=== PATIENT | male | born 1975 | race Caucasian/White ===

== ENCOUNTER 2019-05-13 19:33 | Outpatient (CLI) | payer MEDICAID | END 2019-05-13 19:34 | disposition critical access hospital (66) | LOC: EMS 19:33 | PROVIDERS: ATTEND Surgery | DX: R07.9 Chest pain, unspecified (principal); R06.00 Dyspnea, unspecified; V43.61XA Car passenger injured in collision with sport utility vehicle in traffic accident, initial encounter; Y92.413 State road as the place of occurrence of the external cause | CPT/HCPCS: A0425; A0427 ==

== ENCOUNTER 2019-05-13 19:55 | Emergency (ER) | payer MEDICAID, OTHER ==
[2019-05-13] MEDS ORDERED: SODIUM CHLORIDE 0.9% 1,000 ML IV ONE (20:04)
[2019-05-13] MEDS ORDERED: HYDROmorphone 1 MG/ML CARPUJECT IVP STA ×2 (20:04→20:44)
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
[2019-05-13 20:13] LABS: BASOPHILS % (AUTO) 0.6 %; EOSINOPHILS # (AUTO) 0.4 10^3/uL (0.0-0.7); EOSINOPHILS % (AUTO) 5.4 %; LYMPHOCYTES # (AUTO) 1.7 10^3/uL (1.5-3.5); LYMPHOCYTES % (AUTO) 26.3 %; MEAN CORPUSCULAR HEMOGLOBIN 30.4 pg (27.0-31.0); MEAN CORPUSCULAR HGB CONC 31.8 g/dL (32.0-36.0); MEAN CORPUSCULAR VOLUME 95.7 fL (80.0-94.0); MEAN PLATELET VOLUME 10.1 fL (7.4-11.4); MONOCYTES # (AUTO) 0.5 10^3/uL (0.0-1.0); MONOCYTES % (AUTO) 7.7 %; NEUTROPHILS # (AUTO) 3.9 10^3/uL (1.5-6.6); NEUTROPHILS % (AUTO) 59.2 %; PLT - PLATELET COUNT 255 10^3/uL (130-450); RED CELL DISTRIBUTION WIDTH 12.7 % (12.0-15.0); WHITE BLOOD COUNT 6.5 x10^3/uL (4.8-10.8)
[2019-05-13] MEDS ORDERED: IOVERSOL 320 100 ML VIAL IVP ONE ×2 (20:20→20:35)
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
[2019-05-13 20:27] LABS: ALBUMIN 4.2 g/dL (3.2-5.5); ALBUMIN/GLOBULIN RATIO 1.3 (1.0-2.2); ALKALINE PHOSPHATASE 71 IU/L (42-121); ALT ALANINE AMINOTRANSFERASE 33 IU/L (10-60); AST ASPARTATE AMINOTRANSFERASE 25 IU/L (10-42); BILIRUBIN,TOTAL 0.4 mg/dL (0.2-1.0); BUN - BLOOD UREA NITROGEN 24 mg/dL (6-20); CALCIUM 9.5 mg/dL (8.5-10.3); CARBON DIOXIDE - CO2 30 mmol/L (21-32); CHLORIDE 104 mmol/L (101-111); CREATININE 1.2 mg/dL (0.6-1.2); GFR - MDRD 67 (>89); GLUCOSE 101 mg/dL (70-100); LIPASE 43 U/L (22-51); SODIUM 142 mmol/L (135-145); TOTAL PROTEIN 7.4 g/dL (6.7-8.2)
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
[2019-05-13 20:30] LABS: INR 1.1 (0.8-1.2); PT - PROTHROMBIN TIME 12.4 secs (9.9-12.6)
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
[2019-05-13] MEDS ORDERED: KETOROLAC 30 MG/ML VIAL IVP STA (22:47)
[2019-05-14] MEDS ORDERED: ONDANSETRON 4 MG/2 ML VIAL IVP STA (00:30)
[2019-05-14] MEDS ORDERED: HYDROmorphone 1 MG/ML CARPUJECT IVP STA (00:30)
[2019-05-14 00:34] LABS: MUDS CUTOFF CONCENTRATIONS CUTOFF CONC BELOW:
[2019-05-14 00:36] LABS: BILIRUBIN,URINE NEGATIVE (NEGATIVE); GLUCOSE, URINE (UA) NEGATIVE (NEGATIVE); KETONES,URINE (UA) NEGATIVE (NEGATIVE); LEUKOCYTE ESTERASE, URINE NEGATIVE (NEGATIVE); NITRITE,URINE NEGATIVE (NEGATIVE); OCCULT BLOOD,URINE SMALL (NEGATIVE); PROTEIN,URINE NEGATIVE (NEGATIVE); UROBILINOGEN,URINE 0.2 (NORMAL) E.U./dL (NORMAL)
[2019-05-14 00:37] LABS: CLARITY,URINE CLEAR (CLEAR)
[2019-05-14 00:50] LABS: AMPHETAMINE SCREEN,URINE POSITIVE (NEGATIVE); BENZODIAZEPINES SCREEN, URINE NEGATIVE (NEGATIVE); COCAINE SCREEN URINE NEGATIVE (NEGATIVE); METHADONE SCREEN, URINE NEGATIVE (NEGATIVE); METHAMPHETAMINES SCREEN, URINE POSITIVE (NEGATIVE); OPIATE SCREEN, URINE POSITIVE (NEGATIVE); OXYCODONE SCREEN, URINE NEGATIVE (NEGATIVE); PROPOXYPHENE SCREEN, URINE NEGATIVE (NEGATIVE); TRICYCLIC ANTIDEPRESSANT,URINE NEGATIVE (NEGATIVE)
[2019-05-14 00:54] VITALS: BP 130/102
[2019-05-14 00:56] LABS: BACTERIA,URINE Rare /HPF (None Seen); MUCUS,URINE Few Strands; SQUAMOUS EPITHELIAL CELL,UR NONE SEEN (<= Few)
== END 2019-05-14 01:00 | disposition short-term general hospital (02) ==
LOC: EDUNIT# → ED 19:55
DX: S22.22XA Fracture of body of sternum, initial encounter for closed fracture (principal); S62.511A Displaced fracture of proximal phalanx of right thumb, initial encounter for closed fracture; M25.561 Pain in right knee; V43.52XA Car driver injured in collision with other type car in traffic accident, initial encounter; W22.11XA Striking against or struck by driver side automobile airbag, initial encounter; Y92.411 Interstate highway as the place of occurrence of the external cause; N13.2 Hydronephrosis with renal and ureteral calculous obstruction; M50.30 Other cervical disc degeneration, unspecified cervical region; M51.37 Other intervertebral disc degeneration, lumbosacral region
CPT/HCPCS: 36415; 70450; 71045; 71260; 72125; 73130; 73564; 74177; 80053; 80306; 80320; 81001; 83690; 85025; 85610; 86850; 86900; 86901; 96374; 96375; 96376; 99285; J1170; Q9967; 81003; 87086

== ENCOUNTER 2019-08-22 02:39 | Emergency (ER) | payer MEDICAID, OTHER ==
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
[2019-08-22 05:01] VITALS: BP 144/90
== END 2019-08-22 05:01 | disposition home or self-care (01) ==
LOC: ED 02:39
DX: Z02.89 Encounter for other administrative examinations (principal); S62.221A Displaced Rolando's fracture, right hand, initial encounter for closed fracture; S00.33XA Contusion of nose, initial encounter; V89.2XXA Person injured in unspecified motor-vehicle accident, traffic, initial encounter
CPT/HCPCS: 99283

== ENCOUNTER 2021-07-19 08:00 | Outpatient (CLI) | payer MEDICAID, OTHER ==
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
--- NOTE | 2021-07-19 17:04 | XRAY Report ---
PROCEDURE: Hand 3 View RT INDICATIONS: DEFORMITY OF R FINGER TECHNIQUE: 3 views of the hand(s) acquired. COMPARISON: 08/22/2019 FINDINGS: Bones: Old healed first proximal phalangeal shaft fracture is seen with chronic-appearing deformity. Moderate first MCP and first interphalangeal joint osteoarthritic changes are seen. No acute fracture s or dislocations. No suspicious bony lesions. Soft tissues: No suspicious soft tissue calcifications. IMPRESSION: Old healed first proximal phalangeal shaft fracture and moderate right thumb osteoarthritis. No acute right hand fracture or dislocation. Reviewed by: Lyndon Vasquez MD on 07/19/2021 5:03 PM PST Approved by: Lyndon Vasquez MD on 07/19/2021 5:03 PM PST Station ID: [id number]
== END 2021-07-19 23:59 | disposition home or self-care (01) ==
LOC: DI.N 08:00
PROVIDERS: ATTEND Orthopaedic Surgery
DX: M20.091 Other deformity of right finger(s) (principal); S62.511S Displaced fracture of proximal phalanx of right thumb, sequela; M18.11 Unilateral primary osteoarthritis of first carpometacarpal joint, right hand

== ENCOUNTER 2021-09-07 08:00 | Outpatient (CLI) | payer MEDICAID | END 2021-09-07 23:59 | LOC: LAB 08:00 | PROVIDERS: ATTEND Family Medicine | DX: U07.1 COVID-19 (principal) ==

== ENCOUNTER 2022-11-09 19:19 | Outpatient (CLI) | payer MEDICAID ==
[2022-11-10 02:01] LABS: CHLAMYDIA TRACHOMATIS DNA NEGATIVE (NEGATIVE); NEISSERIA GONORRHOEAE DNA POSITIVE (NEGATIVE)
== END 2022-11-09 23:59 | disposition home or self-care (01) ==
LOC: LAB.N 19:19
PROVIDERS: ATTEND Family Medicine
DX: R30.0 Dysuria (principal); N39.0 Urinary tract infection, site not specified
CPT/HCPCS: 87086; 87491; 87591; 87661

== ENCOUNTER 2023-01-15 19:05 | Emergency (ER) | payer MEDICAID ==
[2023-01-15 19:18] VITALS: BP 154/96
--- NOTE | 2023-01-15 21:49 | ED Physician Documentation ---
PD HPI OPHTHO - Stated complaint Stated Complaint: SWOLLEN EYE - Chief complaint Chief Complaint: Heent - History obtained from History obtained from: Patient - Additional information Additional information: The patient comes to the emergency department chief complaint of left lower eyelid irritation and some weeping over the last few days. He states he had done a bunch of yard work and cleared out a lot of stinging lamberto and was wondering if maybe something got in his eye. However, he has not really had a foreign body sensation in the eye itself is seemed okay. He states he just keeps getting a little drainage from his eyelid. He denies using any contact lenses. He states his vision is slightly blurred in the eye but that is not a new problem. No other injuries or complaints. No rash. No allergies. PD PAST MEDICAL HISTORY - Past Medical History Cardiovascular: None Respiratory: None Neuro: None Endocrine/Autoimmune: None GI: Other : Kidney stones HEENT: None Psych: None Musculoskeletal: None Derm: None - Past Surgical History Past Surgical History: Yes General: Other - Present Medications Home Medications: Ambulatory Orders Medication Instructions Recorded Confirmed Gentamicin 0.3% Ophth Drops 1 drops OPTH BID #5 ml 01/15/23 [Garamycin] - Allergies Allergies/Adverse Reactions: Allergies Allergy/AdvReac Type Severity Reaction Status Date / Time No Known Drug Allergies Allergy Unverified 01/15/23 19:15 - Social History Does the pt smoke?: No Smoking Status: Never smoker Does the pt drink ETOH?: No Does the pt have substance abuse?: No - Immunizations Immunizations are current?: Yes - POLST Patient has POLST: No PD ED PE NORMAL - Vitals Vital signs reviewed: Yes - General General: Alert and oriented X 3, No acute distress, Well developed/nourished - HEENT HEENT: Atraumatic, PERRL, EOMI, Moist mucous membranes, Other (Mild edema and erythema of the left lateral lower eyelid. No firmness or mass. No expressible drainage. No conjunctival injection or visible eye discomfort. No tearing.) - Respiratory Respiratory: No respiratory distress - Derm Derm: Normal color, Warm and dry, No rash - Extremities Extremities: No deformity - Neuro Neuro: Alert and oriented X 3 - Psych Psych: Normal mood, Normal affect Results - Vitals Vitals: Vital Signs - 24 hr 01/15/23 19:13 Temperature 36.7 C Heart Rate 103 H Respiratory 16 Rate Blood Pressure 154/96 H O2 Saturation 97 Oxygen O2 Source Room air PD Medical Decision Making - ED course Complexity details: considered differential, d/w patient ED course: The patient's eye was actually quite benign appearing, and really, the only abnormality on exam was the erythema and mild edema of his left lower eyelid. I discussed with him that the patient may have gotten a tiny foreign body under his left eyelid which has now resolved, and this may have caused some irritation. This could also be an early stye. Whatever the case, I will put him on gentamicin ophthalmic drops. We have discussed indications for follow- up, should symptoms continue. Departure - Departure Disposition: 01 Home, Self Care Clinical Impression: Irritation of eyelid Condition: Stable Instructions: ED Inflammation Eyelid Prescriptions: Gentamicin 0.3% Ophth Drops [Garamycin] 1 drops OPTH BID #5 ml Comments: You may have gotten a tiny amount of foreign material under your left lower eyelid or you could be forming an early stye. Either way, your eye is expected to get better on its own. We will give you some antibiotic drops since you have been having some drainage from the eye. The prescription for this has been electronically transmitted to the [facility] pharmacy in [place] your request. Please follow-up with the paralegal specialist if you have further concerns.
== END 2023-01-15 21:53 | disposition home or self-care (01) ==
LOC: ED 19:05
DX: H57.12 Ocular pain, left eye (principal)
CPT/HCPCS: 99282; 99283